=== PATIENT | female | born 1960 | race Caucasian/White ===

== ENCOUNTER → 2022-12-25 11:02 | Outpatient (CLI) | payer OTHER, SELFPAY ==
--- NOTE | ~2022-12-25 | MR_ITS ---
MRI of the lumbar spine Clinical History: Back pain Technique: Axial T2-weighted images, and sagittal T1-weighted, T2-weighted, and T2 fat-sat images wer e acquired. Findings: There is no fracture or subluxation of the lumbar spine. There is mild levoscoliosis. Lumba r vertebral bodies otherwise maintain normal height and alignment. No suspicious bone marrow signal a bnormality seen. At L1-L2, there is minimal disc bulge. There is moderate facet arthropathy. No spinal canal stenosis. Probable minimal right neural foraminal narrowing. Left neural foramen preserved. At L2-L3, there is advanced degenerative disc narrowing. There is advanced facet arthropathy. There i s probable disc osteophyte complex at the left foraminal region. No central canal stenosis. There is moderate right neural foraminal narrowing. Left neural foramen preserved. At L3-L4, there is no significant disc bulge or herniation. There is advanced facet arthropathy. No s samreen canal stenosis or definite neural foraminal narrowing. At L4-L5, there is no significant disc bulge or herniation. There is advanced facet arthropathy. No s samreen canal stenosis or neural foraminal narrowing. At L5-S1, there is no disc bulge or herniation. There is mild to moderate facet arthropathy. No spina l canal stenosis or neural foraminal narrowing. Paravertebral soft tissues are unremarkable. Impression: Mild degenerative spondylosis overall, with associated mild levoscoliosis. Reviewed, dictated and finalized at [facility]. Impression: Mild degenerative spondylosis overall, with associated mild levoscoliosis.
== END ==
PROVIDERS: PCP Physician Assistant; Visit Provider Chiropractor Rehabilitation
DX: M47.896 Other spondylosis, lumbar region (principal)
CPT/HCPCS: 72148

== ENCOUNTER → 2023-01-17 17:02 | Outpatient (CLI) | payer OTHER, SELFPAY ==
--- NOTE | ~2023-01-17 | XR_ITS ---
EXAMINATION: XR thoracic spine 3V DATE: 01/17/2023 17:40 INDICATION: Back pain TECHNIQUE: AP, lateral and lateral swimmer's views of the thoracic spine were obtained. COMPARISON: None. FINDINGS: There is 66 degrees of thoracic dextroscoliosis. Bone alignment is normal. No fracture is i dentified. There is mild to moderate loss of intervertebral disc space height at multiple levels. The vertebral body heights appear to be maintained. Cardiomegaly is noted. Surgical clips in the right u pper quadrant are likely from prior cholecystectomy. IMPRESSION: 1. Thoracic dextroscoliosis and moderate spondylosis without acute findings identified. Reviewed, dictated and finalized at [facility]. IMPRESSION: 1. Thoracic dextroscoliosis and moderate spondylosis without acute findings sofie ntified.
== END ==
PROVIDERS: PCP Pain Medicine Pain Medicine; Visit Provider Pain Medicine Pain Medicine
DX: M41.84 Other forms of scoliosis, thoracic region (principal); M47.814 Spondylosis without myelopathy or radiculopathy, thoracic region
CPT/HCPCS: 72072

== ENCOUNTER 2024-05-19 12:57 | Emergency (ER) | payer BC, SELFPAY ==
--- NOTE | 2024-05-19 13:07 | ED.URI ---
HPI - URI/Sore Throat General Chief Complaint: Upper Respiratory Infection Stated Complaint: sore throat / cold / cough Time Seen by Provider: 05/19/24 13:07 Source: patient, RN notes reviewed and old records reviewed Mode of arrival: ambulatory Limitations: no limitations History of Present Illness HPI Narrative: 64 [facility] to [facility] with complaint of sinus congestion, sore throat, productive cough since Sunday. Patient reports treating at home with Flonase and Tylenol with mild relief. Patient denies fevers, allergies, pertinent medical history. Patient able to tolerate fluids by mouth. Patient resting in exam room in no acute distress. Respirations even and nonlabored. Patient able to speak in complete sentences without difficulty. Related Data Home Medications Medication Instructions Recorded Confirmed famotidine 20 mg tablet (Pepcid) 20 mg PO DAILY 07/03/19 05/19/24 metoprolol succinate 50 mg 50 mg PO DAILY 07/03/19 05/19/24 tablet,extended release 24 hr amlodipine 10 mg tablet 10 mg DIRECTED 05/19/24 05/19/24 omeprazole 20 mg capsule,delayed 20 mg DIRECTED 05/19/24 05/19/24 release tirzepatide 5 mg/0.5 mL 5 mg subcut WEEKLY 05/19/24 05/19/24 subcutaneous pen injector Allergies Allergy/AdvReac Type Severity Reaction Status Date / Time No Known Allergies Allergy Verified 05/19/24 13:18 Review of Systems Review of Systems: All systems reviewed & are unremarkable except as noted in HPI and below Constitutional: Constitutional: Reports no additional constitutional complaints Eyes: Eyes: Reports no additional eye complaints ENT: Reports as per HPI, Reports nasal congestion, Reports sinus pressure and Reports sore throat Cardiovascular: Cardiovascular: Reports no additional cardiovascular complaints, Denies chest pain and Denies dyspnea Respiratory: Respiratory: Reports no additional respiratory complaints, Reports change in phlegm color, Reports cough and Denies dyspnea Musculoskeletal: Musculoskeletal: Reports no additional musculoskeletal complaints Neurologic: Reports system reviewed and no additional complaints, except as documented Psychiatric: Psychiatric: Reports no additional psychiatric complaints PMFSH Comments At the time of my signature, I reviewed and agree with the nursing past medical, surgical, social, and family history. There is no relevant family history pertinent to the patient complaint. Exam Const: General: cooperative, no acute distress, alert, ill appearing acutely, tired appearing, uncomfortable and well nourished Nutritional Appearance: well nourished Orientation/consciousness: patient oriented x3 Limitations: no limitations HENMT: Head: normal to inspection Ears: external ears normal and TM abnormal with fluid behind the TM bilateral Face/Nose/Sinus: Normal external nose present, Normal nares present, normal facial exam, No erythema and No edema Face and sinus: normal facial exam, no erythema and no edema Mouth: Yes Normal oral and palatal mucosa present Throat: uvula midline and postnasal drainage Eyes: General: appearance normal, both eyes and all related structures Neck: Neck: normal visual inspection, full ROM and no meningeal signs Chest: Chest palpation & inspection: normal inspection of the chest Resp: Effort & Inspection: normal respiratory effort and able to speak in complete sentences Auscultation: clear to auscultation bilaterally Cardio: Jugular venous distension: no JVD Rate: regular rate Rhythm: regular rhythm Back/Spine/Pelvis: Cervical Spine: cervical ROM normal Skin: General skin exam: normal color, no rashes or lesions noted and turgor normal Neuro: General: patient oriented x3, gait normal, moves all extremities and no meningeal signs Speech: normal speech Gait exam (Neuro): Normal gait present Extrem: General: normal to inspection, full ROM and capillary refill normal Psych: Appearance: grossly normal and well kempt C
[2024-05-19 13:12] VITALS: BP 132/67; PULSE 87; RESP 18; TEMP 36.2; O2SAT 96
[2024-05-19 13:44] LABS: EDSTREPNEGPOS1 Negative (Negative)
== END 2024-05-19 13:59 | disposition home or self-care (01) ==
PROVIDERS: Emergency Provider Nurse Practitioner Family; PCP Physician Assistant
DX: R05.9 Cough, unspecified (principal)
CPT/HCPCS: 87081; 87880; 99213; G0463